=== PATIENT | female | born 2005 | race Caucasian/White ===

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

== ENCOUNTER 2024-08-10 12:02 | Emergency (ER) | payer OTHER ==
[~2024-08-10] VITALS: Ht 162.6 cm; Wt 72.5 kg
[~2024-08-10 12:02] MED LIST: TRI-LINYAH1 EACH PO
[2024-08-10] MEDS ORDERED: TETANUS-DIPHTHERIA TOXOIDS/PF 0.5 ML VIAL IM ONE (13:30)
[2024-08-10 13:41] VITALS: BP 124/87
== END 2024-08-10 13:41 | disposition home or self-care (01) ==
LOC: ED 12:02
DX: S71.111A Laceration without foreign body, right thigh, initial encounter (principal); W26.8XXA Contact with other sharp object(s), not elsewhere classified, initial encounter
CPT/HCPCS: 12001; 90471; 90714; 99282-25

== ENCOUNTER 2024-12-11 18:27 | Emergency (ER) | payer OTHER ==
[~2024-12-11] VITALS: Ht 162.6 cm; Wt 70.6 kg
[2024-12-11] MEDS ORDERED: DOXYCYCLINE HY100 M3 PO (18:50)
[2024-12-11] MEDS ORDERED: MUPIROCIN22 GM TOP (18:50)
[2024-12-11 19:44] LABS: BASOPHILS 0.9 % (0.1-1.2); EOSINOPHILS 0.6 % (0.7-5.8); LYMPHOCYTES 38.3 % (19.3-51.7); MCH 28.6 PG (25.6-32.2); MCHC 34.1 g/dL (32.2-35.5); MCV 83.9 fL (79.4-94.8); MONOCYTES 6.2 % (4.7-12.5); NEUTROPHILS 53.7 % (34.0-71.1); RBC 4.72 M/uL (3.93-5.22)
[2024-12-11] MEDS ORDERED: LIDOCAINE/RACEPINEP/TETRACAINE 3 ML SYR TOP ONE (19:45)
[2024-12-11 20:01] LABS: ALT (SGPT) 29.0 U/L (14-59); AST (SGOT) 18.0 U/L (15-37); GLOMERULAR FILTRATION RATE,EST 95.0 mL/min (>60); PROTEIN, TOTAL 7.9 g/dL (6.4-8.2); UREA NITROGEN 15.0 mg/dL (7-18)
[2024-12-11 21:06] VITALS: BP 123/79
== END 2024-12-11 21:08 | disposition home or self-care (01) ==
LOC: ED 18:27
PROVIDERS: Internal Medicine
DX: L98.0 Pyogenic granuloma (principal); Z79.899 Other long term (current) drug therapy
CPT/HCPCS: 36415; 80053; 85025